=== PATIENT | female | born 1995 | race Caucasian/White ===

== ENCOUNTER 2018-11-07 06:20 | Inpatient (IN) | payer OTHER ==
[~2018-11-07] VITALS: Ht 162.6 cm; Wt 104.6 kg
[2018-11-07] MEDS ORDERED: MOM 30ML SUSPENSION UDC PO PRN (10:00)
[2018-11-07] MEDS ORDERED: ACETAMINOPHEN TAB 650MG DOSE (2X325MG) PO PRN (10:00)
[2018-11-07] MEDS ORDERED: LORazepam 1 MG TAB PO PRN (10:00)
[2018-11-07] MEDS ORDERED: traZODone 50 MG TAB PO PRN (10:00)
[2018-11-07] MEDS ORDERED: MAALOX 30 ML SUSP *UDC PO PRN (10:00)
[2018-11-07] MEDS ORDERED: IBUP1TAB7 PO (10:40)
[2018-11-07 16:34] VITALS: BP 130/67
[2018-11-08 06:43] VITALS: BP 99/58
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
[2018-11-08] MEDS ORDERED: CitaloPRAM (CeleXA) 10 MG TABLET PO ONE (13:00)
[2018-11-08 18:00] VITALS: BP 132/88
--- NOTE | 2018-11-08 22:37 | HPEPDOC ---
General Date of Admission Nov 07, 2018 at 09:58 Date of Service: Nov 08, 2018 Primary Care Physician: FRANK VILLAR MD Other Providers Adrian Renee Attending Physician: LY MEZA MD Chief Complaint The patient is a 23-year-old female admitted with a reason for visit of Major Depressive Disorder. Source: Patient Exam Limitations: No limitations Timing/Duration: Unsure History of Present Illness This is a 23 y.o WF with h/o depression,anemia,depression,obesity who has been admitted for depression.Patient says that she was on zoloft and stopped taking it a month ago because she did not feel good when she took it.Since then she has been depressed,however denies suicidal ideation.She can not tell what exactly triggers her depression.She denies being .She says that she never seen a psychiatrist and got her prescriptions from her pcp.She mely;led her pcp to tell him that she was depressed,the pcp told her to come to come the [facility] for treatment.She denies other complaint.Patient's other medications in the past included celexa and seroquel which were discontinued 2 years when she got . Home Medications Scheduled PRN Ibuprofen (Ibuprofen) 800 Mg Tablet, 800 MG PO Q8H PRN for PAIN, (Reported) Allergies Coded Allergies: No Known Allergies (Unverified , 11/07/18) Past Medical History Medical History Obesity,anemia,depression Family History Father:diabetes,depression/anxiety,bipolar. Mother:diabetes,hypertension. Social History * Smoker: Denies Alcohol: Denies Drugs: denies Recent Travel/Sick Contacts: Denies: Recent travel, Recent sick contacts Psychosocial History: Anxiety, Depression A-FIB/CHADSVASC A-FIB History Current/History of A-Fib/PAF?: No Review of Systems Constitutional: Denies: Chills, Fever, Night Sweats Eyes: Denies: Pain, Vision change ENT: Denies: Head Aches, Ear Pain, Dysphagia Skin: Denies: Rash, Lesions, Breakdown Pulmonary: Denies: Dyspnea, Cough Cardiovascular: Denies: Chest Pain, Palpitations, Orthopnea, Paroxysmal Noc. Dyspnea, Lt Headedness Gastrointestinal: Denies: Nausea, Vomiting, Abdominal Pain, Diarrhea Genitourinary: Denies: Dysuria, Frequency, Incontinence, Retention Hematologic: Reports: Other Hematologic (anemia) Musculoskeletal: Denies: Neck Pain, Back Pain, Joint Pain, Muscle Pain, Spasms Neurological: Denies: Weakness, Numbness, Change in speech, Confusion Psych: Reports: Depression Physical Examination General Exam: Positive: Alert, No Acute Distress Eye Exam: Positive: PERRLA, Conjunctiva & lids normal, EOMI; Negative: Sclera icteric ENT Exam: Positive: Atraumatic, Mucous membr. moist/pink, Pharynx Normal Neck Exam: Positive: Supple; Negative: JVD, thyromegaly Chest Exam: Positive: Clear to auscultation, Normal air movement Heart Exam: Positive: Rate Normal, Regular Rhythm, Normal S1, Normal S2; Negative: Murmurs, Rubs Abdomen Exam: Positive: Normal bowel sounds, Soft; Negative: Tenderness, Hepatospenomegaly Extremity Exam: Positive: Normal pulses; Negative: Clubbing, Cyanosis, Edema Skin Exam: Positive: Nl turgor and temperature; Negative: Breakdown, Lesion Neuro Exam: Positive: Normal Gait, Normal Speech, Cranial Nerves 3-12 NL, Reflexes 2+ Psych Exam: Positive: Mood NL, Oriented x 3, Other Vital Signs Vital Signs Date Time Temp Pulse Resp B/P (MAP) Pulse Ox O2 Delivery O2 Flow Rate FiO2 11/08/18 18:00 98.0 90 20 132/88 (103) 11/07/18 06:37 97 Problems (1) Major depressive disorder Status: Acute Problem Text: Under the care of the psychiatrist.See order. (2) History of anemia Problem Text: Will order lab including cbc,TSH,bmp (3) Obesity Problem Text: TSH.Encourage weight loss through diet and exercises. Plan / VTE VTE Prophylaxis Ordered?: No (patient is active ,encourage wallking) Plan Plan Will continue treatment as per psychiatry,otherwise she is medically stable Disposition As per psychiatry LY MEZA MD Nov 08, 2018 22:37
[2018-11-09 06:46] VITALS: BP 111/67
[2018-11-09 07:38] LABS: HEMATOCRIT 31.8 % (36.0-47.0); HEMOGLOBIN 9.1 g/dl (12.0-15.5); MEAN CORPUSCULAR HEMOGLOBIN 21.7 pg (27.0-33.0); MEAN CORPUSCULAR HGB CONC 28.6 g/dl (32.0-36.5); MEAN CORPUSCULAR VOLUME 75.9 fl (80.0-96.0); PLATELET COUNT, AUTOMATED 370 10^3/uL (150-450); RED BLOOD COUNT 4.19 10^6/uL (4.00-5.40); WHITE BLOOD COUNT 9.5 10^3/uL (4.0-10.0)
[2018-11-09 08:25] LABS: ALBUMIN 3.4 GM/DL (3.2-5.2); ALT/SGPT 17 U/L (12-78); BILIRUBIN,TOTAL 0.4 MG/DL (0.2-1.0); BLOOD UREA NITROGEN 14 MG/DL (7-18); CALCIUM LEVEL 8.4 MG/DL (8.5-10.1); CARBON DIOXIDE LEVEL 28 MEQ/L (21-32); CHLORIDE LEVEL 106 MEQ/L (98-107); CHOLESTEROL LEVEL 162 MG/DL (<200); CHOLESTEROL RISK RATIO 3.115 (<5); CREATININE FOR GFR 0.81 MG/DL (0.55-1.30); GLOMERULAR FILTRATION RATE > 60.0 (>60); GLUCOSE, FASTING 98 MG/DL (70-100); HDL CHOLESTEROL 52 MG/DL (>40); LDL CHOLESTEROL 90 MG/DL (<100); NON-HDL-C 110 MG/DL; POTASSIUM SERUM 3.9 MEQ/L (3.5-5.1); SODIUM LEVEL 141 MEQ/L (136-145); TOTAL PROTEIN 7.1 GM/DL (6.4-8.2); TRIGLYCERIDES LEVEL 101 MG/DL (<150)
[2018-11-09] MEDS: CitaloPRAM (CeleXA) 10 MG TABLET PO SCH (09:45)
[2018-11-09] MEDS ORDERED: CELE10TA PO (12:40)
[2018-11-09 18:00] VITALS: BP 147/66
[2018-11-09] MEDS ORDERED: IBUPROFEN 800 MG TAB PO ONE (21:45)
[2018-11-10 06:38] VITALS: BP 103/62
[2018-11-10] MEDS: CitaloPRAM (CeleXA) 10 MG TABLET PO SCH (08:15)
[2018-11-10] MEDS ORDERED: CELE10TA PO (17:00)
--- NOTE | 2018-11-11 16:15 | MHIPNPDOC ---
[facility] Progress Note Progress Note Date of Service: 11/09/2018 History of Present Illness The patient a 23-year-old presents to [facility] with suicidal thoughts. She reports that she had been talking about some hopelessness to her and he had become worried and subsequently brought her to the hospital as she has an extensive family history of suicide. She reports that she is been getting counseling for her depression and has had primary care managing her medications, however, she has not been recently taking psychiatric medications. She has never seen a psychiatrist. Reports low mood, loss of Interest, fatigue, some mood variation and irritation, concentration and focus deficits and hopelessness at times. Interval History The patient is met with today. She describes feeling much improved. Her hopelessness, loss of Interest, concentration problems and general self-approach and guilt have improved greatly on the citalopram. She denies any side effects such as GI upset, headaches or any other concerning side effects. She reports she is ready to go home tomorrow and is feeling much improved. She has been attending groups, doing well socially, amenable on the unit with no behavioral problems noted. Review Of Systems As above. Psychotherapy None on this visit. Vital Signs Reviewed. Mental Status Examination General: Well dressed with good hygiene Speech: Spontaneous and fluid Thought processes: Linear and logical MSK: Smooth and coordinated gait, no signs of tremors or involuntary orofacial movements Thought content: Future orientated Abstract reasoning, and computation: Intact Description of associations: Intact Description of abnormal or psychotic thoughts: Denies any suicidal or homicidal ideation. Denies any auditory or visual hallucinations. Does not appear to be responding to internal stimuli. Does not appear to be endorsing any bizarre or paranoid ideation. Judgment: fair Insight: fair Orientation: Alert and orientated 3 Cognition: Grossly normal Recent and remote memory: Intact Attention span and concentration: Intact Fund of knowledge: Adequate Mood: "okay" Affect: Euthymic with a full range Diagnoses Unspecified depressive disorder. Unspecified trauma/stress-related disorder Assessment and Plan The patient appears to be making good improvement. Continue citalopram 10 mg daily. Discharge tomorrow. Disposition Discharge tomorrow. Time Spent 15 minutes face to face. Vital Signs Vital Signs Date Time Temp Pulse Resp B/P (MAP) Pulse Ox O2 Delivery O2 Flow Rate FiO2 11/10/18 06:38 98.1 77 16 103/62 (76) 11/07/18 06:37 97 Current Medications Current Medications Medications (Trade) Dose Ordered Sig/Enrico Route PRN Reason Start Time Stop Time Status Last Admin Dose Admin Acetaminophen (Tylenol Tab) 650 mg Q6HP PRN PO HEADACHE or DISCOMFORT 11/07/18 10:00 11/10/18 10:23 DC Al Hydrox/Mg Hydrox/Simethicone (Mylanta) 30 ml Q4HP PRN PO HEARTBURN/INDIGESTION 11/07/18 10:00 11/10/18 10:23 DC Citalopram Hydrobromide (CeleXA) 10 mg QAM PO 11/09/18 09:00 11/10/18 10:23 DC 11/10/18 08:15 Home Med (Med Rec Complete!) ASDIRECTED XX 11/07/18 10:45 11/07/18 10:45 DC Lorazepam (Ativan) 1 mg Q4HP PRN PO ANXIETY/AGITATION 11/07/18 10:00 11/10/18 10:23 DC Magnesium Hydroxide (Milk Of Magnesia) 30 ml DAILYPRN PRN PO CONSTIPATION 11/07/18 10:00 11/10/18 10:23 DC Trazodone HCl (Desyrel) 50 mg QHSP PRN PO INSOMNIA 11/07/18 10:00 11/10/18 10:23 DC Allergies Coded Allergies: No Known Allergies (Unverified , 11/07/18) JAYMIE CARROLL DO Nov 11, 2018 16:15
--- NOTE | 2018-11-11 16:19 | MHDSPDOC ---
[facility] Discharge Summary Discharge Summary DATE OF ADMISSION: Nov 07, 2018 at 09:58 DATE OF DISCHARGE: Nov 10, 2018 at 10:18 Date of Service: 11/10/2018 Diagnoses Unspecified depressive disorder. Unspecified trauma/stress-related disorder History of Present Illness The patient a 23-year-old presents to [facility] with suicidal thoughts. She reports that she had been talking about some hopelessness to her and he had become worried and subsequently brought her to the hospital as she has an extensive family history of suicide. She reports that she is been getting counseling for her depression and has had primary care managing her medications, however, she has not been recently taking psychiatric medications. She has never seen a psychiatrist. Reports low mood, loss of Interest, fatigue, some mood variation and irritation, concentration and focus deficits and hopelessness at times. Consultants Involved Hospitalist/PCP screening Treatment and Progress On The Unit The patient was treated on the unit and subsequently started on citalopram 10 mg home dose of which he reports doing well in the past. Her suicidality quickly resolved and she was observed to be euthymic and attended groups well without an y difficulties. No behavioral problems on the unit, requested to leave and on the day of discharge was not demonstrating any suicidal or homicidal ideation for several days prior to the discharge. She was able to attend to her needs and thus did not meet involuntary criteria for further admission and declined further voluntary stay, and thus was discharged in good lorrie to the care of her and outpatient care. Discharge Assessment 23-year-old woman with a history of depression and possible trauma-based symptoms who does well on low-dose citalopram in an acute state of adjustment. It's unclear if she has underlying personality traits that contribute to her presentation. Mental Status Examination General: Well dressed with good hygiene Speech: Spontaneous and fluid Thought processes: Linear and logical MSK: Smooth and coordinated gait, no signs of tremors or involuntary orofacial movements Thought content: Future orientated Abstract reasoning, and computation: Intact Description of associations: Intact Description of abnormal or psychotic thoughts: Denies any suicidal or homicidal ideation. Denies any auditory or visual hallucinations. Does not appear to be responding to internal stimuli. Does not appear to be endorsing any bizarre or paranoid ideation. Judgment: fair Insight: fair Orientation: Alert and orientated 3 Cognition: Grossly normal Recent and remote memory: Intact Attention span and concentration: Intact Fund of knowledge: Adequate Mood: "okay" Affect: Euthymic with a full range Follow Up The social work team worked during the predischarge meeting in order to evaluate for further issues of lethality address them fully before discharge. They worked on safety planning with the patient's family members in order to ensure that the patient will have a safe and effective discharge. Time Spent The amount of time spent in the coordination of care for this patient was approximately 30 minutes. Vital Signs/I&Os Vital Signs Date Time Temp Pulse Resp B/P (MAP) Pulse Ox O2 Delivery O2 Flow Rate FiO2 11/10/18 06:38 98.1 77 16 103/62 (76) 11/07/18 06:37 97 Medications Scheduled Citalopram Hydrobromide (Celexa) 10 Mg Tablet, 10 MG PO QAM for mood for 7 Days, #7 Scheduled PRN Ibuprofen (Ibuprofen) 800 Mg Tablet, 800 MG PO Q8H PRN for PAIN, (Reported) Allergies Coded Allergies: No Known Allergies (Unverified , 11/07/18) JAYMIE CARROLL DO Nov 11, 2018 16:18
== END 2018-11-10 10:18 | disposition home or self-care (01) | DRG 881 ==
LOC: M ED 06:20 → M ED INP 09:58 → M PSY 11:15
PROVIDERS: ADMIT Psychiatry & Neurology Psychiatry; ATTEND Psychiatry & Neurology Addiction Medicine
DX: F32.9 Major depressive disorder, single episode, unspecified (principal); F43.20 Adjustment disorder, unspecified; Z81.8 Family history of other mental and behavioral disorders; Z62.812 Personal history of neglect in childhood; E66.9 Obesity, unspecified; D64.9 Anemia, unspecified; Z91.14 Patient's other noncompliance with medication regimen; Z68.39 Body mass index [BMI] 39.0-39.9, adult

== ENCOUNTER 2019-02-02 18:24 | Emergency (ER) | payer OTHER ==
[~2019-02-02] VITALS: Ht 162.6 cm; Wt 104.5 kg
[2019-02-02 18:24] VITALS: BP 123/79
[~2019-02-02 18:24] MED LIST: CELE10TA PO; IBUP1TAB7 PO
[2019-02-02] MEDS ORDERED: ARIP1TAB4 PO (18:43)
[2019-02-02] MEDS ORDERED: PRAZ2CAP PO (18:43)
--- NOTE | 2019-02-02 19:07 | REP ---
Left ankle series: Four views. History: Injury in a fall. Pain and swelling. Findings: Four views left ankle demonstrate mild anterolateral soft tissue swelling. No fracture or subluxation is seen. Ankle mortise is intact. Impression: No fracture noted. Electronically Signed by Colt Francois MD 02/02/2019 06:58 P
[2019-02-02] MEDS ORDERED: NORCO, ANEXSIA 5/325MG TABLET (HYDROcodone/ACETAMINOPHEN) PO ONE (19:15)
== END 2019-02-02 19:31 | disposition home or self-care (01) ==
LOC: M ED 18:24
DX: S93.402A Sprain of unspecified ligament of left ankle, initial encounter (principal); W00.0XXA Fall on same level due to ice and snow, initial encounter; Y92.017 Garden or yard in single-family (private) house as the place of occurrence of the external cause; Y93.9 Activity, unspecified; Y99.9 Unspecified external cause status; Z91.81 History of falling

== ENCOUNTER 2020-06-12 20:28 | Emergency (ER) | payer OTHER ==
[~2020-06-12] VITALS: Ht 160 cm; Wt 49.0 kg
[~2020-06-12 20:28] MED LIST changes: +ARIP1TAB4 PO; +PRAZ2CAP PO
[2020-06-12] MEDS ORDERED: KETOROLAC TROMETHAMINE 10 MG TAB PO ONE (21:55)
--- NOTE | 2020-06-12 23:41 | REPVR ---
PROCEDURE INFORMATION: Exam: XR Left Knee Exam date and time: 06/12/2020 10:57 PM Age: 24 years old Clinical indication: Other: Swelling pain with injury TECHNIQUE: Imaging protocol: XR Left knee. Views: 4 or more views. [place] view of the patella was included. COMPARISON: No relevant prior studies available. FINDINGS: Limitations: Examination is limited by body habitus. Bones/joints: Sharply demarcated cortical base sclerotic lesion along the posterolateral aspect of the distal femoral metaphysis measuring 5.0 cm in length and 11 mm in thickness. Small crescentic ossification posterior to the tibial plateau measuring 3 x 8 mm. No dislocation. No definite joint effusion is evident. Soft tissues: Normal. IMPRESSION: 1. Small crescentic ossification posterior to the tibial plateau. It is unclear if this represents an acute fracture fragment or chronic calcification. Potential donor site is also unclear. 2. Cortical base sclerotic lesion along the posterolateral aspect of the distal femoral metaphysis. 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 No follow-up is necessary. Electronically signed by: Fco Ryan On 06/12/2020 23:41:15 PM
[2020-06-13] MEDS ORDERED: KETO10TAB PO (00:38)
[2020-06-13 00:42] VITALS: BP 124/67
== END 2020-06-13 00:43 | disposition home or self-care (01) ==
LOC: M ED 20:28
DX: S83.92XA Sprain of unspecified site of left knee, initial encounter (principal); X50.0XXA Overexertion from strenuous movement or load, initial encounter; Y92.019 Unspecified place in single-family (private) house as the place of occurrence of the external cause; Y93.9 Activity, unspecified; Y99.9 Unspecified external cause status; F31.9 Bipolar disorder, unspecified; F41.9 Anxiety disorder, unspecified; Z79.899 Other long term (current) drug therapy